=== PATIENT | female | born 1990 | race African-American/Black ===

== ENCOUNTER 2017-10-07 07:00 | Inpatient (IN) | payer OTHER ==
[2017-10-07 08:17] VITALS: BMI 37.9
[2017-10-07] MEDS ORDERED: ELECTROLYTE-148 SOLN 500 ML IV ONE (08:24)
[2017-10-07] MEDS ORDERED: CITRIC ACID/SODIUM CITRATE 30 ML UNIT-DOSE CUP PO ONE (08:24)
[2017-10-07] MEDS ORDERED: ELECTROLYTE-148 SOLN 1,000 ML IV SCH (08:30)
[2017-10-07 08:48] LABS: BASO % 0.4 % (0-2.0); EOS % 2.8 % (0-4.5); HEMATOCRIT 30.8 % (32.4-45.2); HEMOGLOBIN 10.2 GM/dL (10.7-15.3); LYMPH % 14.8 % (8-40); MCH 28.9 pg (25.7-33.7); MCHC 33.3 g/dl (32.0-36.0); MEAN CELL VOLUME 86.7 fl (80-96); MEAN PLT VOLUME 7.5 fl (7.5-11.1); MONO % 6.2 % (3.8-10.2); NEUT % 75.8 % (42.8-82.8); PLATELET COUNT 340 K/MM3 (134-434); RBC 3.55 M/mm3 (3.60-5.2); WHITE BLOOD COUNT 7.8 K/mm3 (4.0-10.0)
[2017-10-07 08:49] LABS: INR 0.97 (0.82-1.09)
[2017-10-07 08:52] LABS: ACTIVATED PTT 32.2 SECONDS (26.9-34.4)
[2017-10-07 08:59] LABS: ALBUMIN 2.6 g/dl (3.4-5.0); ALK PHOS 154 U/L (45-117); ANION GAP 11 (8-16); BILIRUBIN,TOTAL 0.4 mg/dL (0.2-1.0); BLOOD UREA NITROGEN 5 mg/dL (7-18); CALCIUM 8.2 mg/dL (8.5-10.1); CHLORIDE 106 mmol/L (98-107); CO2 23 mmol/L (21-32); CREATININE 0.4 mg/dL (0.55-1.02); GAMMA GLUTAMYL TRANSPEPTIDASE 6 U/L (5-85); GLUCOSE,RANDOM 81 mg/dL (74-106); POTASSIUM 3.7 mmol/L (3.5-5.1); SGOT/AST 17 U/L (15-37); SGPT/ALT 16 U/L (12-78); SODIUM 140 mmol/L (136-145); TOT PROT 6.2 g/dl (6.4-8.2)
[2017-10-07 09:44] LABS: URINE APPEARANCE SLCLOUDY; URINE BILIRUBIN NEGATIVE (<2.0 mg/dL); URINE BLOOD NEGATIVE (NEGATIVE); URINE COLOR YELLOW; URINE GLUCOSE (UA) NEGATIVE (NEGATIVE); URINE KETONE NEGATIVE (NEGATIVE); URINE LEUK ESTERASE NEGATIVE (NEGATIVE); URINE NITRITE NEGATIVE (NEGATIVE)
[2017-10-07 09:48] LABS: URINE PROTEIN 1+ (NEGATIVE)
[2017-10-07 10:05] LABS: RATIO URIN PROTEIN/URIN CREAT 0.25 MG/DL
--- NOTE | 2017-10-07 10:15 | HP ---
Past Medical History - Primary Care Physician PCP:: Doreen Diaz - Admission Chief Complaint: 27 yrs , previous c/s x2 , 37.5 weeks , h/o chr htn , sometimes ac exacerbations, hence she is recommended delivery by M Dr Darby on 10/04/17 : sono report : SLIUP Vx, ant placenta, efw 34 % ( 6'3") , ARRON 8.8 History of Present Illness: care at , [facility] Pt non compliant wt gain 45 lbs panel 03/08/17 A Pos, Hbsag neg, Rpr nr, Hiv neg , Rubella immune Pap nilm, gc/ct neg , 08/08/17 1 hr Gtt 85, rpr nr, 24hr urine protein 288, cr clearance 117.8 , Uric acid 2.4 , HEELP work Up neg 10/01/17 gc/ct neg, Gbs neg, Hiv neg H/h 10.0/31.2 , PLt 341 , HELLP work Up neg pt had HELLP work up done in L&D twice , last time on 10/04/17 neg , urine pro/ cr ratio 4.2 . pt was followed with [facility] NT screen & Modified Sequential neg Anatomy sono was normal, growth son were done she was placed on Asprin 81 mg po daily. non compliant. last she took on Chr Htn , Rx po labetalo 100 mg BID daily, non compliant . 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 No: Migraine, Seizure Cardiovascular: Yes: HTN (chr hTN treatment with Po labetalol), Other (h/o Preclempsia in previous 3 pregn) Pulmonary: Yes: Asthma, Sleep Apnea Gastrointestinal: No: Gastritis, GERD Renal/: No: UTI Reproductive: Yes: Other (past h/o abn pap, Last pap 03/08/& nILM,) ...: 4 ...Para: 3 ...Term: 3 ...: 0 ...Spon : 0 ...Induced : 0 ...Multiple Gestation: 0 ...LMP: 01/16/17 ... Weeks Gestation by Dates: 37.5 ...EDC by Dates: 10/23/17 ...EDC by Sono: 10/23/17 Additional OB History: G1 10/23/2003 40 weeks 6'4" [facility] h/p preclempsia. G2 08/02/2010 40 weeks Primary c/section h/o preclempsia. G3 01/2014 40 weeks Repeat c/s 6'8" h/o peclempsia Heme/Onc: Yes: Anemia (rx po iron bid & pnv, high iron diet). No: B12 Deficiency, Bleeding Disorder, Cancer, Current Chemotherapy, Current Radiation Therapy, Hemochromatosis, Hypercoaguable State, Myeloproliferative Synd, Sickle Cell Disease, Sickle Cell Trait, Thrombocytopenia, Other Infectious Disease: Yes: STD's (h/o HPV in past). No: AIDS, HIV, Tuberculosis Psych: Yes: Other (denies h/o mental health problems) Endocrine: Yes: Other (obesity) - Past Surgical History Past Surgical History: Yes: (c/sections 07/2010 & 01/2014) Hx Myomectomy: No Hx Transabdominal Cerclage: No - Smoking History Smoking history: Current every day smoker Have you smoked in the past 12 months: Yes Aproximately how many cigarettes per day: 1 - Alcohol/Substance Use Hx Alcohol Use: No History of Substance Use: reports: None, Marijuana (pt states she stopped couple of months before she was seen in the clinic , ? 12/2016. 03/08/17 urine drug tox pos for Marijuana) Home Medications - Allergies Allergies/Adverse Reactions: Allergies Allergy/AdvReac Type Severity Reaction Status Date / Time No Known Allergies Allergy Verified 10/07/17 09:30 - Home Medications Home Medications: Ambulatory Orders Aspirin [Ecotrin] 81 mg PO DAILY 09/24/17 Ferrous Sulfate 325 mg PO DAILY 09/24/17 Labetalol HCl 100 mg PO BID 09/24/17 Vitamins (Sjr) - 1 tab PO DAILY 09/24/17 Family Disease History - Family Disease History Family Disease History: Diabetes: Mother (HTN), Sister (PIH), Other: Grandparent (HTN) Physical Exam - Maternity Vital Signs: Vital Signs Temperature 98.4 F 10/07/17 07:52 Pulse Rate 80 10/07/17 07:52 Respiratory Rate 18 10/07/17 07:52 Blood Pressure 131/85 10/07/17 07:52 O2 Sat by Pulse Oximetry (%) Selected Entries 10/07/17 07:52 Weight 235 lb Constitutional: Yes: Well Nourished, No Distress, Obese Eyes: Yes: WNL HENT: Yes: WNL Neck: Yes: WNL Cardiovascular: Yes: WNL, Regular Rate and Rhythm Lungs: Clear to auscultation Breast(s): Yes: WNL. No: Mass - Abdominal Exam/OB Fundal Height: 38 Number of Fetuses: Single Presentation: Vertex Contractions: No Monitor Mode: External Heart Rate (range): 115-120 Heart Rate Location: Midline Category: I Accelerations: Uniform Decelerations: None - Vaginal Exam/OB Vaginal Bleediing: No Speculum Exam: No Dilatation (cm): close Effacement (%): unefface Presentation: Vertex/Position Station: -3 - Physical Exam Musculoskeletal: Yes: WNL Extremities: Yes: WNL. No: Calf Tenderness Edema: Yes Edema: LLE: 1+, RLE: 1+ Integumentary: Yes: WNL, Incision (pfannensteil scar) Deep Tendon Reflex Grade: Normal +2 ...Motor Strength: WNL Psychiatric: Yes: WNL - Labs Lab Results: CBC, BMP 10/07/17 08:00 10/07/17 08:00 Laboratory Tests 10/07/17 10/07/17 10/07/17 08:00 08:00 09:02 PT with INR 11.00 INR 0.97 PTT (Actin FS) 32.2 Urine Protein 1+ H Protein/Creatinin Ratio RPR Titer Nonreactive 10/07/17 09:02 PT with INR INR PTT (Actin FS) Urine Protein Protein/Creatinin Ratio 0.25 RPR Titer Laboratory Tests 10/07/17 08:00 GGT 6 AST 17 ALT 16 Hemorrhage Risk Assessment - Risk Factors Risk Score: 2 Risk Level: High Risk Problem List - Problems (1) 37 or more weeks gestation of Code(s): [id number] - (2) Previous section Code(s): Z98.891 - HISTORY OF UTERINE SCAR FROM PREVIOUS SURGERY (3) Chronic hypertension affecting Code(s): O10.919 - UNSP PRE-EXISTING HTN COMP , UNSP TRIMESTER (4) Obesity (BMI 35.0-39.9 without comorbidity) Code(s): E66.9 - OBESITY, UNSPECIFIED (5) Anemia affecting in third trimester Code(s): O99.013 - ANEMIA COMPLICATING , THIRD TRIMESTER Assessment/Plan 27 yrs , previous c/s x2 , 37.5 weeks, Chr Htn on meds po labetalol & po asprin , recommended delivery by MFM , gbs neg , anemia h/o preclempsia in past . plan repeat c/section
[2017-10-07] MEDS ORDERED: OXYTOCIN 20 UNITS in 0.9% NS 20 UNIT/1,000 ML INFUS.BAG IV ONE (10:20)
[2017-10-07] MEDS ORDERED: morphine SULFATE/Preservative Free 0.5 MG/ML (1cc Syringe) ONE (10:38)
[2017-10-07] MEDS ORDERED: LABETALOL HCL 5 MG/1 ML (100MG/20 ML VIAL) ONE (10:45)
[2017-10-07] MEDS ORDERED: ESMOLOL HCL 100,000 MCG/10 ML VIAL ONE (10:47)
[2017-10-07] MEDS ORDERED: IBUPROFEN 600 MG TABLET (FP) PO PRN (11:07)
[2017-10-07] MEDS ORDERED: ONDANSETRON 4 MG/2 ML VIAL IVPUSH PRN (11:07)
[2017-10-07] MEDS ORDERED: MIDAZOLAM HCL 2 MG/2 ML SINGLE DOSE VIAL ONE (11:37)
[2017-10-07 12:16] LABS: COCAINE, UR NEGATIVE ng/ml (CUTOFF=300); METHADONE, UR NEGATIVE ng/ml (CUTOFF=300); OPIATES, URI NEGATIVE ng/ml (CUTOFF=300); PHENCYCLIDINE,URINE NEGATIVE ng/ml (CUTOFF=25); URINE AMPHETAMINES NEGATIVE ng/ml (CUTOFF=500); URINE BARBITURATES NEGATIVE ng/ml (CUTOFF=200); URINE BENZODIAZEPINES NEGATIVE ng/ml (CUTOFF=200)
[2017-10-07] MEDS ORDERED: ceFAZolin SODIUM 1 GM VIAL ONE ×2 (12:26)
[2017-10-07] MEDS ORDERED: METHYLERGONOVINE MALEATE 0.2 MG/1 ML AMP IM PRN (12:35)
[2017-10-07] MEDS ORDERED: SENNOSIDES/DOCUSATE COMBO (SENNA PLUS) TABLET (UD) PO PRN (12:35)
[2017-10-07] MEDS ORDERED: OXYTOCIN 20 UNITS in 0.9% NS 20 UNIT/1,000 ML INFUS.BAG IV SCH (12:45)
--- NOTE | 2017-10-07 13:32 | OP ---
Operative Note - Note: Operative Date: 10/07/17 Pre-Operative Diagnosis: 37.5 weeks, previous c/s x2, Chr HTN, Obesity, anemia Operation: RepeatlFTC/S Findings: 11.15 AM , baby boy, 9/9, wt 6' 13" , LOT . lysis of omental adhesions do e both tubes & ovaries normal Dr Brito present in the OR Surgeon: Doreen Diaz Regulatory Agency Director: Franck Barney Anesthesiologist/WORKFORCE CONSULTANT: Subhash Lui Anesthesia: Spinal Specimens Removed: cord segment for blood gas. cord blood. placenta Estimated Blood Loss (mls): 800 Drains, Volume Out (mls): 100 (robertson alla color ) Operative Report Dictated: Yes
--- NOTE | 2017-10-07 13:37 | PN ---
Delivery - Delivery Section: Repeat, Low Flap Transverse (Lysis of Omental adhesions) Type of Anesthesia: Spinal EBL (cc): 800 (robertson out put 100 ml alla color ) Delivery, Single - Stages of Labor Date of Delivery: 10/07/17 Time of Delivery: 11:15 Time Placenta Delivered: 11:17 Placenta: Yes: Manual Removal, Uterine Exploration - Condition of Instructor Ballroom Dancing/District Administrator Present: Yes Name: Darrius Brito Infant Gender: Male Weight: 6 lb 13 oz Position: Left, OT Total Hours ROM (Hrs/Mins): 0hrs/2mins - 1 Minute Total Score: 9 5 Minutes Total Score: 9 - Hardin Feeding Plan Initial Plan: Elected not to breastfeed exclusively throughout hospitalization Remarks - Remarks Remarks: 22 yrs , GBS neg, PNC at 2, [facility] Indication : 37.5 weeks, previous c/s x2, chr HTN, Obesity , Anemia Intra op 3 gm iv ancef given IV Labetalol 10 mg preop given intraop course uneventful Post Op BP 160/97 post op 200 mg po Labetalo given
[2017-10-07] MEDS: ACETAMINOPHEN 1000 MG/100 ML VIAL (NON FORMULARY) IVPB PRN (13:55)
[2017-10-07] MEDS ORDERED: LABETALOL HCL 200 MG TABLET (FP) PO SCH (14:00)
[2017-10-07 16:02] LABS: EPI CELLS MANY /HPF (FEW); URINE BACTERIA MANY /hpf (NONE SEEN)
[2017-10-07] MEDS: CEFAZOLIN 1 GM/D5W 1 GM/50 ML BAG IVPB SCH (18:10)
[2017-10-07] MEDS ORDERED: LABETALOL HCL 200 MG TABLET (FP) PO PRN (18:52)
--- NOTE | 2017-10-07 18:52 | CONSULT ---
Consult - text type - Consultation Consultation Note: Renal Consult for Hypertension Vital Signs Temperature 98.4 F 10/07/17 18:00 Pulse Rate 86 10/07/17 18:00 Respiratory Rate 20 10/07/17 18:00 Blood Pressure 164/97 10/07/17 18:00 O2 Sat by Pulse Oximetry (%) 100 10/07/17 16:10 Intake & Output 10/04/17 10/05/17 10/06/17 10/07/17 23:59 23:59 23:59 23:59 Intake Total 1450 Output Total 300 Balance 1150 Weight 106.594 kg CBC, BMP 10/07/17 08:00 10/07/17 08:00 Current Medications Acetaminophen (Tylenol -) 650 mg PO Q4H PRN PRN Reason: PAIN LEVEL 4 - 6 Acetaminophen (Ofirmev Injection -) 1,000 mg IVPB Q6H PRN PRN Reason: PAIN LEVEL 1-5 Last Admin: 10/07/17 13:55 Dose: 1,000 mg Bisacodyl (Dulcolax Suppository -) 10 mg RC PRN PRN PRN Reason: CONSTIPATION Diphenhydramine HCl (Benadryl Injection -) 25 mg IVPUSH Q4H PRN PRN Reason: Pruritis Diphtheria/Tetanus/Acell Pertussis (Boostrix -) 0.5 ml IM .ONCE ONE Stop: 10/08/17 14:01 Enoxaparin Sodium (Lovenox -) 40 mg SQ DAILY [facility] Ferrous Sulfate (Feosol -) 325 mg PO BID [facility] Cefazolin Sodium (Ancef 1 Gm Premixed Ivpb -) 1 gm in 50 mls @ 100 mls/hr IVPB Q8H-IV [facility] Stop: 10/08/17 17:59 Last Admin: 10/07/17 18:10 Dose: 100 mls/hr Oxytocin/Sodium Chloride (Normal Saline+20 Units Oxytocin -) 20 unit in 1,000 mls @ 125 mls/hr IV ASDIR [facility] Last Admin: 10/07/17 11:17 Dose: 125 mls/hr Labetalol HCl (Normodyne -) 200 mg PO TID [facility] Last Admin: 10/07/17 13:00 Dose: 200 mg Methylergonovine Maleate (Methergine Injection -) 0.2 mg IM Q4H PRN PRN Reason: Excessive Bleeding (L&D) Ondansetron HCl (Zofran Injection) 4 mg IVPUSH Q4H PRN PRN Reason: NAUSEA Last Admin: 10/07/17 14:10 Dose: 4 mg Oxycodone HCl (Roxicodone -) 5 mg PO Q4H PRN PRN Reason: PAIN LEVEL 4 - 6 Oxycodone HCl (Roxicodone -) 10 mg PO Q4H PRN PRN Reason: PAIN LEVEL 7 - 10 Pneumococcal 13-Valent Conj Vacc (Prevnar 13 Syringe -) 0.5 ml IM .ONCE ONE Stop: 10/08/17 14:01 Multivit/Folic Acid/Iron ( Vitamins (Sjr) -) 1 tab PO DAILY ROS Senna/Docusate Sodium (Pericolace -) 2 tablet PO HS PRN PRN Reason: CONSTIPATION Simethicone (Mylicon -) 80 mg PO Q4H PRN PRN Reason: GAS 27 year old woman with underlying hypertension now with hypertension that is uncontrolled. # hypertension secondary to gestational hypertension + essential hypertension no overt proteinuria or thrombocytopenia to indicate pre-eclampia or HEELP syndrome Start Nifepdine 30mg Daily continue Labetalol PRN Q6h for SBP > 160 or DBP > 100 Low salt diet avoid nsaids if possible Thank you Fritz Winchester DO
[2017-10-07] MEDS: NIFEdipine E.R. 30 MG TABLET (FP) PO SCH (19:12)
[2017-10-08] MEDS: CEFAZOLIN 1 GM/D5W 1 GM/50 ML BAG IVPB SCH ×2 (02:56→09:22)
[2017-10-08] MEDS: ACETAMINOPHEN 1000 MG/100 ML VIAL (NON FORMULARY) IVPB PRN (04:42)
[2017-10-08] MEDS ORDERED: oxyCODONE HCL 5 MG TABLET PO PRN (06:00)
--- NOTE | 2017-10-08 08:13 | PN ---
Progress Note (short form) - Note Progress Note: Anesthesia pod#1 S/P under spinal and Duramorph VSS,ambulating well,no N/V,mild itch is still there. A/P Doing well Maribel Santoyo MD.
[2017-10-08 08:43] LABS: BASO % 0.3 % (0-2.0); LYMPH % 8.6 % (8-40); MCH 29.2 pg (25.7-33.7); MCHC 33.4 g/dl (32.0-36.0); MEAN CELL VOLUME 87.4 fl (80-96); MEAN PLT VOLUME 7.5 fl (7.5-11.1); MONO % 5.7 % (3.8-10.2); NEUT % 84.4 % (42.8-82.8); PLATELET COUNT 314 K/MM3 (134-434); RBC 3.08 M/mm3 (3.60-5.2); RDW 14.1 % (11.6-15.6); WHITE BLOOD COUNT 10.3 K/mm3 (4.0-10.0)
[2017-10-08] MEDS: PRENATAL VITAMINS W/ FOLIC ACID TABLET (FP) PO SCH (09:22)
[2017-10-08] MEDS: ENOXAPARIN NA (PORCINE) 40 MG/0.4 ML DISP.SYRIN SQ SCH (09:22)
[2017-10-08] MEDS: NIFEdipine E.R. 30 MG TABLET (FP) PO SCH (09:22)
--- NOTE | 2017-10-08 09:33 | PN ---
Post Progress Note - Subjective Subjective: 27 yo Para 3 status post repeat , seen and evaluated. Doing well. Post Day: 1 Type of Delivery: Repeat C/S Vital Signs: Vital Signs Temperature 98.1 F 10/08/17 06:00 Pulse Rate 87 10/08/17 06:00 Respiratory Rate 20 10/08/17 09:00 Blood Pressure 132/82 10/08/17 06:00 O2 Sat by Pulse Oximetry (%) 100 10/07/17 16:10 Breast Exam: Yes: Soft Uterus: Yes: Fundus Firm Incision: Yes: Dressing dry and intact Abdomen/GI: Yes: Abdomen soft, Tolerating PO Lochia: Yes: Rubra Lochia, amount: Small Extremities: Yes: Calves non-tender Perineum: Yes: Intact Activity: Ambulating - Labs Labs: CBC WBC 10.3 K/mm3 (4.0-10.0) H D 10/08/17 07:45 RBC 3.08 M/mm3 (3.60-5.2) L 10/08/17 07:45 Hgb 9.0 GM/dL (10.7-15.3) L D 10/08/17 07:45 Hct 27.0 % (32.4-45.2) L 10/08/17 07:45 MCV 87.4 fl (80-96) 10/08/17 07:45 MCH 29.2 pg (25.7-33.7) 10/08/17 07:45 MCHC 33.4 g/dl (32.0-36.0) 10/08/17 07:45 RDW 14.1 % (11.6-15.6) 10/08/17 07:45 Plt Count 314 K/MM3 (134-434) 10/08/17 07:45 MPV 7.5 fl (7.5-11.1) 10/08/17 07:45 Neutrophils % 84.4 % (42.8-82.8) H 10/08/17 07:45 Lymphocytes % 8.6 % (8-40) D 10/08/17 07:45 Monocytes % 5.7 % (3.8-10.2) 10/08/17 07:45 Eosinophils % 1.0 % (0-4.5) 10/08/17 07:45 Basophils % 0.3 % (0-2.0) 10/08/17 07:45 Retic Count 2.13 % (0.5-1.5) H 10/07/17 08:00 Haptoglobin 140 mg/dL (34-200) 10/07/17 08:00 Problem List - Problems (1) Status post repeat low transverse section Code(s): Z98.891 - HISTORY OF UTERINE SCAR FROM PREVIOUS SURGERY Assessment/Plan Status post repeat Stable Ambulation Analgesia as needed Continue routine post op care
[2017-10-08] MEDS ORDERED: BISACODYL 10 MG SUPP.RECT RC PRN (12:35)
--- NOTE | 2017-10-08 13:32 | PN ---
Progress Note (short form) - Note Progress Note: Renal follow up for Hypertension Pt seen and examined at the bedside has some abd discomfort no GARCIA, blurry vision, dizziness, lightheadedness, N/V Vital Signs Temperature 98.7 F 10/08/17 13:00 Pulse Rate 97 H 10/08/17 13:00 Respiratory Rate 20 10/08/17 13:00 Blood Pressure 142/92 10/08/17 13:00 O2 Sat by Pulse Oximetry (%) 100 10/07/17 16:10 Intake & Output 10/05/17 10/06/17 10/07/17 10/08/17 23:59 23:59 23:59 23:59 Intake Total 1750 1050 Output Total 500 1100 Balance 1250 -50 Weight 106.594 kg NAD awake and alert RRR Trace LE edema CBC, BMP 10/08/17 07:45 10/07/17 08:00 Current Medications Acetaminophen (Tylenol -) 650 mg PO Q4H PRN PRN Reason: PAIN LEVEL 4 - 6 Acetaminophen (Ofirmev Injection -) 1,000 mg IVPB Q6H PRN PRN Reason: PAIN LEVEL 1-5 Last Admin: 10/08/17 04:42 Dose: 1,000 mg Bisacodyl (Dulcolax Suppository -) 10 mg RC PRN PRN PRN Reason: CONSTIPATION Diphenhydramine HCl (Benadryl Injection -) 25 mg IVPUSH Q4H PRN PRN Reason: Pruritis Last Admin: 10/08/17 08:06 Dose: 25 mg Diphtheria/Tetanus/Acell Pertussis (Boostrix -) 0.5 ml IM .ONCE ONE Stop: 10/08/17 14:01 Enoxaparin Sodium (Lovenox -) 40 mg SQ DAILY ROS Last Admin: 10/08/17 09:22 Dose: 40 mg Ferrous Sulfate (Feosol -) 325 mg PO BID [facility] Cefazolin Sodium (Ancef 1 Gm Premixed Ivpb -) 1 gm in 50 mls @ 100 mls/hr IVPB Q8H-IV ROS Stop: 10/08/17 17:59 Last Admin: 10/08/17 09:22 Dose: 100 mls/hr Oxytocin/Sodium Chloride (Normal Saline+20 Units Oxytocin -) 20 unit in 1,000 mls @ 125 mls/hr IV ASDIR ROS Last Admin: 10/07/17 11:17 Dose: 125 mls/hr Labetalol HCl (Normodyne -) 200 mg PO Q6H PRN PRN Reason: HYPERTENSION Last Admin: 10/08/17 03:02 Dose: 200 mg Methylergonovine Maleate (Methergine Injection -) 0.2 mg IM Q4H PRN PRN Reason: Excessive Bleeding (L&D) Nifedipine (Procardia Xl -) 30 mg PO ONCE ONE Stop: 10/08/17 13:31 Nifedipine (Procardia Xl -) 60 mg PO DAILY [facility] Ondansetron HCl (Zofran Injection) 4 mg IVPUSH Q4H PRN PRN Reason: NAUSEA Last Admin: 10/07/17 14:10 Dose: 4 mg Oxycodone HCl (Roxicodone -) 5 mg PO Q4H PRN PRN Reason: PAIN LEVEL 4 - 6 Oxycodone HCl (Roxicodone -) 10 mg PO Q4H PRN PRN Reason: PAIN LEVEL 7 - 10 Pneumococcal Polyvalent Vaccine (Pneumovax -) 0.5 ml IM .ONCE ONE Stop: 10/08/17 14:01 Multivit/Folic Acid/Iron ( Vitamins (Sjr) -) 1 tab PO DAILY [facility] Last Admin: 10/08/17 09:22 Dose: 1 tab Senna/Docusate Sodium (Pericolace -) 2 tablet PO HS PRN PRN Reason: CONSTIPATION Simethicone (Mylicon -) 80 mg PO Q4H PRN PRN Reason: GAS 27 year old woman with underlying hypertension now with hypertension that is uncontrolled. # hypertension secondary to gestational hypertension + essential hypertension BP remains above goal will change nifedipine to 60mg daily and continue Labetalol PRN for SBP > 160 or DBP > 100 Low salt diet avoid nsaids Thank you Fritz Winchester DO
[2017-10-08] MEDS ORDERED: NIFEdipine E.R. 30 MG TABLET (FP) PO ONE (13:45)
[2017-10-08] MEDS ORDERED: PNEUMOC 13-VAL CONJ-DIP CRM/PF 0.5 ML DISP.SYRIN IM ONE (14:00)
[2017-10-08] MEDS ORDERED: PNEUMOCOCCAL 23 VACCINE 0.5 ML VIAL IM ONE (14:00)
[2017-10-08] MEDS ORDERED: DIPHTH,PERTUSS(ACELL),TET 0.5 ML DISP.SYRIN IM ONE (14:00)
[2017-10-08] MEDS: SIMETHICONE 80 MG TAB.CHEW (FP) PO PRN ×2 (16:55→22:20)
[2017-10-08] MEDS: ACETAMINOPHEN 325 MG TABLET (FP) PO PRN ×2 (16:55→22:23)
[2017-10-08] MEDS: oxyCODONE HCL 5 MG TABLET PO PRN ×2 (16:55→22:22)
[2017-10-08] MEDS: FERROUS SO4 325 MG TABLET (FP) PO SCH (22:20)
[2017-10-09] MEDS: SIMETHICONE 80 MG TAB.CHEW (FP) PO PRN ×2 (04:39→09:27)
[2017-10-09] MEDS: ACETAMINOPHEN 325 MG TABLET (FP) PO PRN ×4 (04:39→21:18)
[2017-10-09] MEDS: oxyCODONE HCL 5 MG TABLET PO PRN ×2 (04:40→09:28)
--- NOTE | 2017-10-09 08:27 | PN ---
Post Progress Note - Subjective Subjective: c/o persistent headache since last night .abd incision site pain 5-6/10 bleeing is less now Post Day: 2 Type of Delivery: Repeat C/S Vital Signs: Vital Signs Temperature 99.0 F 10/09/17 05:52 Pulse Rate 98 H 10/09/17 05:52 Respiratory Rate 20 10/09/17 05:52 Blood Pressure 137/82 10/09/17 05:52 O2 Sat by Pulse Oximetry (%) 100 10/07/17 16:10 Breast Exam: Yes: Soft, Other (Bf ). No: Engorged Uterus: Yes: Fundus Firm, Fundus below umbilicus, Non-tender Incision: Yes: Sutures intact. No: Redness, Oozing Abdomen/GI: Yes: Abdomen soft, Passing flatus (bm not done ), Tolerating PO ( diet ). No: Abdominal Distention (obese abdomen ) Lochia: Yes: Rubra Lochia, amount: Moderate Extremities: Yes: Calves non-tender Perineum: Yes: Intact Activity: Ambulating - Labs Labs: CBC WBC 10.3 K/mm3 (4.0-10.0) H D 10/08/17 07:45 RBC 3.08 M/mm3 (3.60-5.2) L 10/08/17 07:45 Hgb 9.0 GM/dL (10.7-15.3) L D 10/08/17 07:45 Hct 27.0 % (32.4-45.2) L 10/08/17 07:45 MCV 87.4 fl (80-96) 10/08/17 07:45 MCH 29.2 pg (25.7-33.7) 10/08/17 07:45 MCHC 33.4 g/dl (32.0-36.0) 10/08/17 07:45 RDW 14.1 % (11.6-15.6) 10/08/17 07:45 Plt Count 314 K/MM3 (134-434) 10/08/17 07:45 MPV 7.5 fl (7.5-11.1) 10/08/17 07:45 Neutrophils % 84.4 % (42.8-82.8) H 10/08/17 07:45 Lymphocytes % 8.6 % (8-40) D 10/08/17 07:45 Monocytes % 5.7 % (3.8-10.2) 10/08/17 07:45 Eosinophils % 1.0 % (0-4.5) 10/08/17 07:45 Basophils % 0.3 % (0-2.0) 10/08/17 07:45 Retic Count 2.13 % (0.5-1.5) H 10/07/17 08:00 Haptoglobin 140 mg/dL (34-200) 10/07/17 08:00 Problem List - Problems (1) 37 or more weeks gestation of Code(s): [id number] - (2) Previous section Code(s): Z98.891 - HISTORY OF UTERINE SCAR FROM PREVIOUS SURGERY (3) Chronic hypertension affecting Code(s): O10.919 - UNSP PRE-EXISTING HTN COMP , UNSP TRIMESTER (4) Obesity (BMI 35.0-39.9 without comorbidity) Code(s): E66.9 - OBESITY, UNSPECIFIED (5) Anemia affecting in third trimester Code(s): O99.013 - ANEMIA COMPLICATING , THIRD TRIMESTER Assessment/Plan post op repeat c/section , CHr Htn on Po Procardia 30 XL & labetalo 200 mg prn headache possible due to procardia, will let Dr Winchester be aware of it .. anemia , ct po iron & pnv encourage ambulation & deep breathing
--- NOTE | 2017-10-09 09:10 | OP ---
DATE OF OPERATION: 10/07/2017 PREOPERATIVE DIAGNOSIS: AT 37.5 weeks, previous section x2, chronic hypertension acute exacerbation, obesity, anemia. SURGEON: Doreen Diaz MD SUPERVISORY INVESTIGATIVE SPECIALIST SURGEON: SANCHEZ Figueredo ANESTHESIOLOGIST: uSbhash Lui MD ANESTHESIA: Spinal. PRIMING POWDER PREMIX BLENDER: Darrius Brito MD POSTOPERATIVE DIAGNOSIS: At 37.5 weeks, previous section x2, chronic hypertension acute exacerbation, obesity, anemia. FINDINGS: This is 27-year-old 4, para 3-0-0-3, previous x2, has history of hypertension, sometimes blood pressure spikes, blood pressure elevation to 160 systolic to 101 diastolic so [facility] recommends delivery. Patient is brought in for a today. HELLP Work Up was negative and urine protein is 1+. Patient is not in labor. PROCEDURE: Patient was taken to the operating room table, and abdomen was shaved, prepped. Little catheter was placed. Spinal anesthesia was given. She was placed in supine position. Abdomen was painted and draped in usual manner. Pfannenstiel incision was made through previous scar, skin, subcutaneous tissue and anterior rectus sheath was incised transversely. Bleeding points were clamped and cauterized. Rectus muscle was from the rectus sheath. The parietal peritoneum was opened vertically. Lower flap of the peritoneum was incised transversely, and there was no definite layer of bladder peritoneum identified and the bladder was pushed down and the lower uterine segment was isolated. It was very thick, and it was extended transversely. Amniotic fluid was clear. Baby was delivered from LOT position, baby boy at 11:15 a.m., was 9 and 9, and the baby's weight was 6 pounds 13 ounces. Cord was clamped and cut. Cord blood was collected. A cord segment was sent for the cord blood gases, and placenta was removed completely with the membranes. Then , the uterine cavity was cleaned. The uterine incision was closed in 2 layers. First layer was continuous locking with Biosyn 0 suture. Second layer was continuous intermittent locking with Biosyn 0 suture. In second layer, vertical mattress sutures were taken, Upper layer of incision was very thick myometrium. Bladder peritoneum was closed also with Biosyn 0 suture with interrupted sutures where it could be identified . Hemostasis was verified. Both tubes and ovaries were normal,.and there were omental adhesions anteriorly into the parietal peritoneum. The omentum was clamped, cut, and ligated with 0 Vicryl suture and the parietal peritoneum was freed from the omental adhesions. In order to obtain adequate exposure , extension was done on right side by rectus muscle transection . the muscle was approximated together on right side. Rt & Lt side rectus muscle also was approximated together with Vicryl 0 suture. Hemostasis was verified in the muscle layer and underneath the rectus sheath. Then the rectus sheath was closed with 0 Vicryl suture. Continuous sutures were taken. Hemostasis again checked and the subcutaneous tissue was approximated with 0 Vicryl 0 interrupted sutures, and then hemostasis verified, and the skin was approximated with the subcuticular sutures with the 3-0 Vicryl on a straight needle. Steri-Strips were applied. Pressure dressing was applied. Blood clots were removed from the vagina. Estimated blood loss was 800 mL. Intraoperative urine output was 100 mL. She received 2 g of IV Ancef prior to the incision, and she tolerated procedure well, and she was transferred to the recovery room in stable condition. Her postop blood pressure was 161/97. Consult with mower mechanic Dr Winchester was obtained, and she was given 200 mg of p.o. labetalol. Vj [id number] MTDD
[2017-10-09] MEDS: ENOXAPARIN NA (PORCINE) 40 MG/0.4 ML DISP.SYRIN SQ SCH (09:21)
[2017-10-09] MEDS: PRENATAL VITAMINS W/ FOLIC ACID TABLET (FP) PO SCH (09:27)
[2017-10-09] MEDS: FERROUS SO4 325 MG TABLET (FP) PO SCH ×2 (09:27→21:19)
[2017-10-09] MEDS: NIFEdipine E.R 60 MG TABLET (UD) PO SCH (09:27)
--- NOTE | 2017-10-09 17:28 | PN ---
Progress Note (short form) - Note Progress Note: Renal follow up for Hypertension Pt seen and examined at the bedside has frontal GARCIA BP is better Vital Signs Temperature 98.2 F 10/09/17 17:00 Pulse Rate 121 H 10/09/17 17:00 Respiratory Rate 18 10/09/17 17:00 Blood Pressure 135/82 10/09/17 17:00 O2 Sat by Pulse Oximetry (%) 100 10/07/17 16:10 Intake & Output 10/06/17 10/07/17 10/08/17 10/09/17 23:59 23:59 23:59 23:59 Intake Total 1750 1900 Output Total 500 1400 Balance 1250 500 Weight 106.594 kg NAD awake and alert RRR Trace LE edema CBC, BMP 10/08/17 07:45 10/07/17 08:00 Current Medications Acetaminophen (Tylenol -) 650 mg PO Q4H PRN PRN Reason: PAIN LEVEL 4 - 6 Last Admin: 10/09/17 09:28 Dose: 650 mg Acetaminophen (Ofirmev Injection -) 1,000 mg IVPB Q6H PRN PRN Reason: PAIN LEVEL 1-5 Last Admin: 10/08/17 04:42 Dose: 1,000 mg Bisacodyl (Dulcolax Suppository -) 10 mg RC PRN PRN PRN Reason: CONSTIPATION Diphenhydramine HCl (Benadryl Injection -) 25 mg IVPUSH Q4H PRN PRN Reason: Pruritis Last Admin: 10/08/17 08:06 Dose: 25 mg Enoxaparin Sodium (Lovenox -) 40 mg SQ DAILY [facility] Last Admin: 10/09/17 09:21 Dose: 40 mg Ferrous Sulfate (Feosol -) 325 mg PO BID [facility] Last Admin: 10/09/17 09:27 Dose: 325 mg Labetalol HCl (Normodyne -) 200 mg PO Q6H PRN PRN Reason: HYPERTENSION Last Admin: 10/08/17 03:02 Dose: 200 mg Methylergonovine Maleate (Methergine Injection -) 0.2 mg IM Q4H PRN PRN Reason: Excessive Bleeding (L&D) Nifedipine (Procardia Xl -) 60 mg PO DAILY [facility] Last Admin: 10/09/17 09:27 Dose: 60 mg Ondansetron HCl (Zofran Injection) 4 mg IVPUSH Q4H PRN PRN Reason: NAUSEA Last Admin: 10/07/17 14:10 Dose: 4 mg Oxycodone HCl (Roxicodone -) 5 mg PO Q4H PRN PRN Reason: PAIN LEVEL 4 - 6 Last Admin: 10/09/17 09:28 Dose: 5 mg Oxycodone HCl (Roxicodone -) 10 mg PO Q4H PRN PRN Reason: PAIN LEVEL 7 - 10 Multivit/Folic Acid/Iron ( Vitamins (Sjr) -) 1 tab PO DAILY ROS Last Admin: 10/09/17 09:27 Dose: 1 tab Senna/Docusate Sodium (Pericolace -) 2 tablet PO HS PRN PRN Reason: CONSTIPATION Last Admin: 10/08/17 22:20 Dose: 2 tablet Simethicone (Mylicon -) 80 mg PO Q4H PRN PRN Reason: GAS Last Admin: 10/09/17 09:27 Dose: 80 mg 27 year old woman with underlying hypertension now with hypertension that is uncontrolled. # hypertension secondary to gestational hypertension + essential hypertension BP at goal continue nifedpine XL 60mg Daily Tylenol PRN For GARCIA trend HR, if not improved consider EKG Thank you Fritz Winchester DO
--- NOTE | 2017-10-10 05:35 | PN ---
Post Progress Note - Subjective Subjective: 27 yo status post repeat , with gestational hypertension, seen and evaluated. She denies any headache, blurry vision nor epigastric pain. Blood pressure is controlled. Post Day: 3 Type of Delivery: Repeat C/S Vital Signs: Vital Signs Temperature 98.5 F 10/09/17 21:00 Pulse Rate 93 H 10/10/17 01:30 Respiratory Rate 20 10/10/17 01:30 Blood Pressure 130/83 10/10/17 01:30 O2 Sat by Pulse Oximetry (%) 100 10/07/17 16:10 Breast Exam: Yes: Soft Uterus: Yes: Fundus Firm Incision: Yes: [place] intact Abdomen/GI: Yes: Abdomen soft, Tolerating PO Lochia: Yes: Rubra Extremities: Yes: Calves non-tender Perineum: Yes: Intact Activity: Ambulating - Labs Labs: CBC WBC 10.3 K/mm3 (4.0-10.0) H D 10/08/17 07:45 RBC 3.08 M/mm3 (3.60-5.2) L 10/08/17 07:45 Hgb 9.0 GM/dL (10.7-15.3) L D 10/08/17 07:45 Hct 27.0 % (32.4-45.2) L 10/08/17 07:45 MCV 87.4 fl (80-96) 10/08/17 07:45 MCH 29.2 pg (25.7-33.7) 10/08/17 07:45 MCHC 33.4 g/dl (32.0-36.0) 10/08/17 07:45 RDW 14.1 % (11.6-15.6) 10/08/17 07:45 Plt Count 314 K/MM3 (134-434) 10/08/17 07:45 MPV 7.5 fl (7.5-11.1) 10/08/17 07:45 Neutrophils % 84.4 % (42.8-82.8) H 10/08/17 07:45 Lymphocytes % 8.6 % (8-40) D 10/08/17 07:45 Monocytes % 5.7 % (3.8-10.2) 10/08/17 07:45 Eosinophils % 1.0 % (0-4.5) 10/08/17 07:45 Basophils % 0.3 % (0-2.0) 10/08/17 07:45 Retic Count 2.13 % (0.5-1.5) H 10/07/17 08:00 Haptoglobin 140 mg/dL (34-200) 10/07/17 08:00 Problem List - Problems (1) Status post repeat low transverse section Code(s): Z98.891 - HISTORY OF UTERINE SCAR FROM PREVIOUS SURGERY Assessment/Plan Status post repeat Gestational hypertension Continue antihypertensive Consider D/C home tomorrow
[2017-10-10 09:23] LABS: BASO % 0.3 % (0-2.0); EOS % 2.2 % (0-4.5); HEMATOCRIT 29.8 % (32.4-45.2); LYMPH % 11.3 % (8-40); MCH 29.4 pg (25.7-33.7); MCHC 33.6 g/dl (32.0-36.0); MEAN CELL VOLUME 87.7 fl (80-96); MEAN PLT VOLUME 7.5 fl (7.5-11.1); MONO % 4.8 % (3.8-10.2); NEUT % 81.4 % (42.8-82.8); PLATELET COUNT 444 K/MM3 (134-434); RBC 3.39 M/mm3 (3.60-5.2); RDW 14.6 % (11.6-15.6); WHITE BLOOD COUNT 9.9 K/mm3 (4.0-10.0)
[2017-10-10] MEDS: NIFEdipine E.R 60 MG TABLET (UD) PO SCH (10:00)
[2017-10-10] MEDS: FERROUS SO4 325 MG TABLET (FP) PO SCH ×2 (10:00→21:28)
[2017-10-10] MEDS: PRENATAL VITAMINS W/ FOLIC ACID TABLET (FP) PO SCH (10:00)
[2017-10-10] MEDS: ENOXAPARIN NA (PORCINE) 40 MG/0.4 ML DISP.SYRIN SQ SCH (11:54)
[2017-10-10] MEDS: ACETAMINOPHEN 325 MG TABLET (FP) PO PRN ×2 (14:43→21:27)
--- NOTE | 2017-10-10 18:03 | PN ---
Progress Note (short form) - Note Progress Note: Renal follow up for Hypertension Pt seen and examined at the bedside has mild GARCIA, improved from yesterday no sob, chest pain no dizziness Vital Signs Temperature 98.1 F 10/10/17 14:00 Pulse Rate 99 H 10/10/17 14:00 Respiratory Rate 20 10/10/17 14:00 Blood Pressure 123/83 10/10/17 14:00 O2 Sat by Pulse Oximetry (%) 100 10/07/17 16:10 Intake & Output 10/07/17 10/08/17 10/09/17 10/10/17 23:59 23:59 23:59 23:59 Intake Total 1750 1900 Output Total 500 1400 Balance 1250 500 Weight 106.594 kg NAD awake and alert RRR Trace LE edema CBC, BMP 10/10/17 07:45 10/07/17 08:00 Current Medications Acetaminophen (Tylenol -) 650 mg PO Q4H PRN PRN Reason: PAIN LEVEL 4 - 6 Last Admin: 10/10/17 14:43 Dose: 650 mg Acetaminophen (Ofirmev Injection -) 1,000 mg IVPB Q6H PRN PRN Reason: PAIN LEVEL 1-5 Last Admin: 10/08/17 04:42 Dose: 1,000 mg Bisacodyl (Dulcolax Suppository -) 10 mg RC PRN PRN PRN Reason: CONSTIPATION Diphenhydramine HCl (Benadryl Injection -) 25 mg IVPUSH Q4H PRN PRN Reason: Pruritis Last Admin: 10/08/17 08:06 Dose: 25 mg Enoxaparin Sodium (Lovenox -) 40 mg SQ DAILY [facility] Last Admin: 10/10/17 11:54 Dose: 40 mg Ferrous Sulfate (Feosol -) 325 mg PO BID [facility] Last Admin: 10/10/17 10:00 Dose: 325 mg Labetalol HCl (Normodyne -) 200 mg PO Q6H PRN PRN Reason: HYPERTENSION Last Admin: 10/08/17 03:02 Dose: 200 mg Methylergonovine Maleate (Methergine Injection -) 0.2 mg IM Q4H PRN PRN Reason: Excessive Bleeding (L&D) Nifedipine (Procardia Xl -) 60 mg PO DAILY [facility] Last Admin: 10/10/17 10:00 Dose: 60 mg Ondansetron HCl (Zofran Injection) 4 mg IVPUSH Q4H PRN PRN Reason: NAUSEA Last Admin: 10/07/17 14:10 Dose: 4 mg Oxycodone HCl (Roxicodone -) 5 mg PO Q4H PRN PRN Reason: PAIN LEVEL 4 - 6 Last Admin: 10/09/17 09:28 Dose: 5 mg Oxycodone HCl (Roxicodone -) 10 mg PO Q4H PRN PRN Reason: PAIN LEVEL 7 - 10 Multivit/Folic Acid/Iron ( Vitamins (Sjr) -) 1 tab PO DAILY ROS Last Admin: 10/10/17 10:00 Dose: 1 tab Senna/Docusate Sodium (Pericolace -) 2 tablet PO HS PRN PRN Reason: CONSTIPATION Last Admin: 10/08/17 22:20 Dose: 2 tablet Simethicone (Mylicon -) 80 mg PO Q4H PRN PRN Reason: GAS Last Admin: 10/09/17 09:27 Dose: 80 mg 27 year old woman with underlying hypertension now with hypertension that is uncontrolled. # hypertension secondary to gestational hypertension + essential hypertension BP at goal, GARCIA is improved continue current management if bp remains at this range, stable for discharge on PO Nifedpine in AM Thank you Fritz Winchester DO
--- NOTE | 2017-10-11 07:23 | PN ---
Progress Note (short form) - Note Progress Note: pod 4 , s/p c/s ,htn no headache, no blurred vision CBC, BMP 10/10/17 07:45 10/07/17 08:00 Last Vital Signs Temp Pulse Resp BP Pulse Ox 98.4 F 87 20 149/93 100 10/10/17 21:00 10/11/17 06:00 10/11/17 06:00 10/11/17 06:00 10/07/17 16:10 abdomen soft, no distension, no cva incision dry, clean no calf tenderness trace edema impression, pod4, gestational HTN ,asymptomatic plan revaluation by renal ,if ok can be d/c home on po Labetalol, follow up in [facility] care 3 to 4 days
[2017-10-11] MEDS: ENOXAPARIN NA (PORCINE) 40 MG/0.4 ML DISP.SYRIN SQ SCH (10:13)
[2017-10-11] MEDS: PRENATAL VITAMINS W/ FOLIC ACID TABLET (FP) PO SCH (10:13)
[2017-10-11] MEDS: NIFEdipine E.R 60 MG TABLET (UD) PO SCH (10:15)
[2017-10-11] MEDS: ACETAMINOPHEN 325 MG TABLET (FP) PO PRN (10:21)
[2017-10-11] MEDS: FERROUS SO4 325 MG TABLET (FP) PO SCH (10:24)
--- NOTE | 2017-10-11 11:16 | PATH ---
Surgical Pathology Report Patient Name: JUAN M LARSON Med. Rec. #: [id number] /Age/Gender: 1990 (Age: 27) / F Account: [id number] Location: [facility] OBS/PRACTICE PERFORMANCE MANAGER Taken: 10/07/2017 Received: 10/08/2017 Reported: 10/11/2017 Physicians: Doreen Diaz M.D. Specimen(s) Received PLACENTA Clinical History history of eclampsia, asthma, history of HPV, trichomonas, chronic hypertension, poor compliance, x1, x2 Final Diagnosis PLACENTA, DELIVERY: THIRD TRIMESTER PLACENTA WITH FOCAL CALCIFICATION, 3 VESSEL UMBILICAL CORD, AND UNREMARKABLE PLACENTAL MEMBRANES. Electronically Signed Giovanni Rodgers M.D. Gross Description The specimen is received fresh labeled placenta and is a 538 gram, 19 x 15 x 3 cm. placenta with attached membranes and umbilical cord. The attached membranes are glistening and translucent and insert marginally. The umbilical cord measures 14 cm. in length and averages 1 cm. in diameter. The cord inserts paramarginally, 0.5 cm. to the nearest margin. No true knots or strictures are identified. Cut surface of the umbilical cord reveals 3 vessels. The surface is gaspar-blue with minimal fibrin deposition and appropriate caliber vessels. The maternal surface is lobulated and appears complete with no adherent blood clots or areas of thinning. Sectioning reveals red-brown, spongy parenchyma. No lesions are identified. Rn Renal sections are submitted in three cassettes as follows: 1- membrane rolls and umbilical cord; 2-3- full thickness sections of placenta. [facility]/10/09/2017 [facility]/10/09/2017
--- NOTE | 2017-10-11 11:37 | DS ---
Physical Exam-APPLIED MATHEMATICIAN Vital Signs: Vital Signs Temperature 98.4 F 10/10/17 21:00 Pulse Rate 87 10/11/17 06:00 Respiratory Rate 20 10/11/17 06:00 Blood Pressure 149/93 10/11/17 06:00 O2 Sat by Pulse Oximetry (%) 100 10/07/17 16:10 Constitutional: Yes: Well Nourished, Obese, Other (no c/o headache) Eyes: Yes: WNL HENT: Yes: WNL, Normocephalic Neck: Yes: WNL Cardiovascular: Yes: WNL, Regular Rate and Rhythm Respiratory: Yes: WNL, CTA Bilaterally Gastrointestinal: Yes: WNL, Normal Bowel Sounds, Soft, Abdomen, Obese, Other ( bm done). No: Distention Renal/: Yes: WNL, Other (voiding without difficulty) External Genitalia: Yes: Normal ....Post : Yes: Uterus firm, Uterus non-tender, Moderate lochia rubra ( perineum intact) Breast(s): Yes: WNL, Other (pt is not BF) Musculoskeletal: Yes: WNL Extremities: Yes: WNL. No: Calf Tenderness Edema: Yes Edema: LLE: Trace, RLE: Trace Integumentary: Yes: Tattoos Wound/Incision: Yes: Clean/Dry, Sutures Intact (intradermal sutures), Steri Strips, Open to air Neurological: Yes: WNL, Alert, Oriented ...Motor Strength: WNL Psychiatric: Yes: WNL, Alert, Oriented Labs: CBC, BMP 10/10/17 07:45 10/07/17 08:00 Delivery - Delivery Section: Repeat, Low Flap Transverse (Lysis of Omental adhesions) Type of Anesthesia: Spinal EBL (cc): 800 (robertson out put 100 ml alla color ) Delivery, Single - Stages of Labor Date of Delivery: 10/07/17 Time of Delivery: 11:15 Time Placenta Delivered: 11:17 Placenta: Yes: Manual Removal, Uterine Exploration - Condition of Infant Canvass Manager/Tool Adjuster Present: Yes Name: Darrius Brito Infant Gender: Male Weight: 6 lb 13 oz Position: Left, OT Total Hours ROM (Hrs/Mins): 0hrs/2mins - 1 Minute Total Score: 9 5 Minutes Total Score: 9 - Barre Feeding Plan Initial Plan: Elected not to breastfeed exclusively throughout hospitalization Remarks - Remarks Remarks: 22 yrs , GBS neg, PNC at 2, [facility] Indication : 37.5 weeks, previous c/s x2, chr HTN, Obesity , Anemia Intra op 3 gm iv ancef given IV Labetalol 10 mg preop given intraop course uneventful Post Op BP 160/97 post op 200 mg po Labetalo given . post op consult with Dr Rasheed was obtatined for control of hypertension pt is placed on po Procardia 60 Xl , with labetalol prn . discharge today pending dr rasheed clearance . discharge 10/11/17 Discharge Summary Reason For Visit: C/SECTION Current Active Problems 37 or more weeks gestation of (Acute) Anemia affecting in third trimester (Acute) Chronic hypertension affecting (Acute) Obesity (BMI 35.0-39.9 without comorbidity) (Acute) Previous section (Acute) Status post repeat low transverse section (Acute) Condition: Stable - Instructions Diet, Activity, Other Instructions: PT INSTRUCTED TO CALL CLINIC FOR 1 WEEK FOLLOW UP APPOINTMENT. PT INSTRUCTED TO FOLLOW UP AT OFFICE WITH DR RASHEED ON October. PT INSTRUCTED TO CALL MD IF C/O HEADACHE, BLURRED VISION, OR EPIGASTRIC DISCOMFORT OR ANY OTHER COMPLAINTS. Referrals: Doreen Diaz MD [Staff Physician] - Fritz Rasheed MD [Staff Physician] - Disposition: HOME - Home Medications Comprehensive Discharge Medication List: Ambulatory Orders Ferrous Sulfate 325 mg PO DAILY 09/24/17 Vitamins (Sjr) - 1 tab PO DAILY 09/24/17 Acetaminophen [Tylenol .Regular Strength -] 500 mg PO Q4H PRN #30 tablet Ferrous Sulfate [Feosol] 325 mg PO BID tab 10/10/17 Vitamins (Sjr) - 1 tab PO DAILY #60 tablet 10/10/17
--- NOTE | 2017-10-11 12:06 | PN ---
Progress Note (short form) - Note Progress Note: Renal follow up for Hypertension Pt seen and examined at the bedside awake and alert no acute complaints no GARCIA, no blurry vision wants to go home Vital Signs Temperature 98.4 F 10/10/17 21:00 Pulse Rate 87 10/11/17 06:00 Respiratory Rate 20 10/11/17 06:00 Blood Pressure 149/93 10/11/17 06:00 O2 Sat by Pulse Oximetry (%) 100 10/07/17 16:10 Intake & Output 10/08/17 10/09/17 10/10/17 10/11/17 23:59 23:59 23:59 23:59 Intake Total 1900 Output Total 1400 Balance 500 NAD awake and alert RRR Trace LE edema CBC, BMP 10/10/17 07:45 10/07/17 08:00 Current Medications Acetaminophen (Tylenol -) 650 mg PO Q4H PRN PRN Reason: PAIN LEVEL 4 - 6 Last Admin: 10/11/17 10:21 Dose: 650 mg Acetaminophen (Ofirmev Injection -) 1,000 mg IVPB Q6H PRN PRN Reason: PAIN LEVEL 1-5 Last Admin: 10/08/17 04:42 Dose: 1,000 mg Bisacodyl (Dulcolax Suppository -) 10 mg RC PRN PRN PRN Reason: CONSTIPATION Diphenhydramine HCl (Benadryl Injection -) 25 mg IVPUSH Q4H PRN PRN Reason: Pruritis Last Admin: 10/08/17 08:06 Dose: 25 mg Enoxaparin Sodium (Lovenox -) 40 mg SQ DAILY [facility] Last Admin: 10/11/17 10:13 Dose: 40 mg Ferrous Sulfate (Feosol -) 325 mg PO BID [facility] Last Admin: 10/11/17 10:24 Dose: 325 mg Labetalol HCl (Normodyne -) 200 mg PO Q6H PRN PRN Reason: HYPERTENSION Last Admin: 10/08/17 03:02 Dose: 200 mg Methylergonovine Maleate (Methergine Injection -) 0.2 mg IM Q4H PRN PRN Reason: Excessive Bleeding (L&D) Nifedipine (Procardia Xl -) 60 mg PO DAILY [facility] Last Admin: 10/11/17 10:15 Dose: 60 mg Ondansetron HCl (Zofran Injection) 4 mg IVPUSH Q4H PRN PRN Reason: NAUSEA Last Admin: 10/07/17 14:10 Dose: 4 mg Oxycodone HCl (Roxicodone -) 5 mg PO Q4H PRN PRN Reason: PAIN LEVEL 4 - 6 Last Admin: 10/09/17 09:28 Dose: 5 mg Oxycodone HCl (Roxicodone -) 10 mg PO Q4H PRN PRN Reason: PAIN LEVEL 7 - 10 Multivit/Folic Acid/Iron ( Vitamins (Sjr) -) 1 tab PO DAILY ROS Last Admin: 10/11/17 10:13 Dose: 1 tab Senna/Docusate Sodium (Pericolace -) 2 tablet PO HS PRN PRN Reason: CONSTIPATION Last Admin: 10/08/17 22:20 Dose: 2 tablet Simethicone (Mylicon -) 80 mg PO Q4H PRN PRN Reason: GAS Last Admin: 10/09/17 09:27 Dose: 80 mg 27 year old woman with underlying hypertension now with hypertension that is uncontrolled. # hypertension secondary to gestational hypertension + essential hypertension BP has been well controlled apart from 1 reading this am will recheck BP 2 hours after meds if improved pt can be discharged home on Nifedpine XL 60mg Daily (Rx called into pharmacy) Low salt diet pt advised to record BP twice daily at home to follow up in our office October 21 information on hypotension and what to do if she has symptoms provided Thank you for allowing us to take part in the care of this patient Fritz Winchester DO
[2017-10-11 14:19] VITALS: TEMP 98.7
[2017-10-11 14:26] VITALS: BP 144/80; PULSE 100
== END 2017-10-11 14:00 | disposition home or self-care (01) | DRG 540 ==
LOC: JLDR 07:00 → J3W 17:31
PROVIDERS: ADMIT Obstetrics & Gynecology; ATTEND Obstetrics & Gynecology
PROC: 10D00Z1 Extraction of Products of Conception, Low, Open Approach (ICD-10-PCS; principal; 2017-10-07)
PROC: 0DNU0ZZ Release Omentum, Open Approach (ICD-10-PCS; 2017-10-07)
DX: O34.211 Maternal care for low transverse scar from previous cesarean delivery (principal); O10.013 Pre-existing essential hypertension complicating pregnancy, third trimester; O99.213 Obesity complicating pregnancy, third trimester; E66.9 Obesity, unspecified; O99.013 Anemia complicating pregnancy, third trimester; O99.62 Diseases of the digestive system complicating childbirth; K66.0 Peritoneal adhesions (postprocedural) (postinfection); Z68.37 Body mass index [BMI] 37.0-37.9, adult; O99.334 Smoking (tobacco) complicating childbirth; F17.213 Nicotine dependence, cigarettes, with withdrawal; O26.893 Other specified pregnancy related conditions, third trimester; J45.909 Unspecified asthma, uncomplicated; G47.30 Sleep apnea, unspecified; Z37.0 Single live birth; Z3A.37 37 weeks gestation of pregnancy
CPT/HCPCS: 36415; 36600; 80053; 80307; 81003; 81015; 82570; 82803; 82977; 83010; 84156; 84550; 85025; 85044; 85610; 85730; 86593; 86850; 86900; 86901; 88307-TC; 90715; 90732; 94010; G0009; J0131

== ENCOUNTER 2018-10-02 17:11 | Emergency (ER) | payer OTHER ==
[2018-10-02 17:41] VITALS: BMI 34.7
[2018-10-02] MEDS ORDERED: ACETAMINOPHEN 1000 MG/100 ML VIAL (NON FORMULARY) IVPB ONE (18:10)
--- NOTE | 2018-10-02 18:20 | PDOC ---
History of Present Illness - General Chief Complaint: Headache Stated Complaint: high blood pressure Time Seen by Provider: 10/02/18 18:20 - History of Present Illness Initial Comments: 28yo A0 with PMH of HTN and asthma currently 11 weeks (LMP 07/15/18) presenting with headache, nausea, and vomiting. Patient states she woke up with a 10/10 headache. Out of concern that this may have to do with her blood pressure, patient took her nifedipine. She also took tylenol. Because she did not feel relief of her headache, she decided to come to the ED. Patient has had hypertension since her first when she was age 13. She reports being on several different antihypertensive medicines but has not taken anything for the past several months. Her certified registered nurse practitioner prescribed her nifedipine 30mg at her last office visit a couple days ago and today is now day two of taking this mediation. Patient says she has had nausea and vomiting throughout her , however, not this severe. She endorses nine episodes of nonbloody bilious vomiting. Patient has been unable to tolerate po intake without vomiting, such that she has kept herself from eating. She has had headaches like this previously, namely when her blood pressure was high. She was admitted to [facility] about six months ago with a blood pressure systolic in the 200's. No contractions or vaginal bleeding. Denies dysuria, but endorses frequency. No fevers, chills, chest pain, or shortness of breath. service attendant: Dr. Dubon PCP: Patient does not know the name of her physician Past History - Past Medical History Allergies/Adverse Reactions: Allergies Allergy/AdvReac Type Severity Reaction Status Date / Time No Known Allergies Allergy Verified 10/07/17 09:30 Home Medications: Ambulatory Orders Vitamins (Sjr) - 1 tab PO DAILY #60 tablet 10/10/17 Aspirin [Aspirin EC] 81 mg PO DAILY 10/02/18 Metoclopramide HCl [Reglan] 5 mg PO PRN PRN #15 tablet 10/02/18 Nifedipine [Procardia Xl] 30 mg PO DAILY 10/02/18 Asthma: Yes (No recent attacks) Cancer: No Cardiac Disorders: No COPD: No Diabetes: No HTN: Yes (Chronic Hypertension) Seizures: No Thyroid Disease: No - Suicide/Smoking/Psychosocial Hx Smoking History: Current some day smoker Have you smoked in the past 12 months: Yes Number of Cigarettes Smoked Daily: 1 Information on smoking cessation initiated: Yes Hx Alcohol Use: No Drug/Substance Use Hx: No Substance Use Type: None Hx Substance Use Treatment: No Review of Systems - Review of Systems Comments:: Constitutional: no fever, no chills HEENT: no throat pain, no dysphagia Cardiovascular: no chest pain, no palpitations Respiratory: no cough, no shortness of breath Gastrointestinal: +nausea, +vomiting Genitourinary: no dysuria, +frequency Musculoskeletal: no myalgia, no arthralgia Skin: no rash, no itching Neurologic: +headache, +lightheaded *Physical Exam - Vital Signs Last Vital Signs Temp Pulse Resp BP Pulse Ox 98.6 F 98 H 22 H 160/103 H 100 10/02/18 17:27 10/02/18 17:27 10/02/18 17:27 10/02/18 17:27 10/02/18 17:27 - Physical Exam Comments: General: Awake, alert, and fully oriented, in no acute distress Head: No signs of trauma Eyes: EOMI, sclera anicteric ENT: Moist mucus membranes Neck: Normal ROM, supple Lungs: Lungs clear, Normal breath sounds Cardio: Regular rhythm, S1 and S2 present Abdomen: Soft, nontender. No guarding, no rebound, no masses Extremities: Normal range of motion, Distal pulses present SKIN: Warm, Dry, normal turgor Neurologic: Cranial nerves II through XII grossly intact. Normal speech, sensation, strength, coordination, and gait. Moderate Sedation - Procedure Monitoring Vital Signs: Procedure Monitoring Vital Signs Temperature 98.6 F 10/02/18 17:27 Pulse Rate 98 H 10/02/18 17:27 Respiratory Rate 22 H 10/02/18 17:27 Blood Pressure 160/103 H 10/02/18 17:27 O2 Sat by Pulse Oximetry (%) 100 10/02/18 17:27 ED Treatment Course - LABORATORY CBC & Chemistry Diagram: 10/02/18 18:55 10/02/18 18:55 Medical Decision Making - Medical Decision Making 28yo A0 with PMH of HTN and asthma currently 11 weeks (LMP 07/15/18) presenting with headache, nausea, and vomiting. DDX including but not limited to tension headache, dehydration, gestational hypertension, pre-ecclampsia, hypertensive emergency/urgency, brain bleed 1g tylenol, 10 reglan, 1L NS No anemia or leukocytosis Electrolytes unremarkable [id number], consistent with reported gestational age Tpn negative Cr=0.5 UA negative for infection, with 1+ ketones EKG: rate 83, QTc 441, NSR, LVH with tall QRS complexes not present on EKG 10/02/18 20:54 As patient is in the first trimester of her , low suspicion for ecclampsia or pre-ecclampsia. Unremarkable troponin, creatinine, no vision changes. Do not suspect end-organ damage from hypertension Presentation consistent with tension headache combined with nausea/vomiting of with secondary dehydration Patient reports alleviated headache Patient passed po challenge Plan to discharge 10/02/18 21:27 *DC/Admit/Observation/Transfer Diagnosis at time of Disposition: Vomiting during Headache Qualifiers: Headache type: tension-type Headache chronicity pattern: acute headache Intractability: not intractable Qualified Code(s): G44.209 - Tension-type headache, unspecified, not intractable - Discharge Dispostion Disposition: HOME Condition at time of disposition: Stable - Prescriptions Prescriptions: Metoclopramide HCl [Reglan] 5 mg PO PRN PRN #15 tablet PRN Reason: Nausea - Referrals - Patient Instructions Printed Discharge Instructions: DI for Hyperemesis Gravidarum Additional Instructions: You were seen in the Emergency Department for headache. Blood work and urinalysis was normal. Anti-nausea prescription for sent to your pharmacy. Follow-up with at your already scheduled follow-up appointment on Saturday. Return to the Emergency Department if you experience: -heavy vaginal bleeding -severe pain -lightheadedness -shortness of breath -high fever -chest pain -any other concerning symptoms - Post Discharge Activity
[2018-10-02] MEDS ORDERED: METOCLOPRAMIDE HCL INJECTION 10 MG/2 ML VIAL IVPUSH ONE (18:57)
[2018-10-02] MEDS ORDERED: SODIUM CHLORIDE 1,000 ML IV STA (18:57)
[2018-10-02] MEDS ORDERED: ACETAMINOPHEN INJECTION 100 ML IVPB ONE (18:57)
[2018-10-02] MEDS ORDERED: METOCLOPRAMIDE HCL INJECTION 10 MG/2 ML VIAL ONE (19:06)
[2018-10-02 19:29] LABS: BASO % 0.5 % (0-2.0); EOS % 0.1 % (0-4.5); HEMATOCRIT 37.1 % (32.4-45.2); HEMOGLOBIN 12.7 GM/dL (10.7-15.3); LYMPH % 9.7 % (8-40); MCH 30.2 pg (25.7-33.7); MCHC 34.2 g/dl (32.0-36.0); MEAN CELL VOLUME 88.2 fl (80-96); MEAN PLT VOLUME 7.6 fl (7.5-11.1); NEUT % 86.7 % (42.8-82.8); PLATELET COUNT 406 K/MM3 (134-434); RBC 4.21 M/mm3 (3.60-5.2); RDW 15.4 % (11.6-15.6); WHITE BLOOD COUNT 8.2 K/mm3 (4.0-10.0)
--- NOTE | 2018-10-02 19:36 | PDOC ---
Attending Attestation - HPI HPI: The patient is a 28 year old female, A0 (currently 11 weeks , LMP was 07/15/18), with a significant PMH of chronic HTN and asthma, who presents to the emergency department today complaining of headache, nausea, and vomit for one day. Patient reports having a headache upon waking up this morning, which was 10/10 in nature. She admits to taking Nifedipine because she thought it was secondary to her HTN, but did not have any relief. Patient also endorses nausea and 9 episodes of NBNB vomit, noting she is unable to keep anything down. She reports having nausea and vomiting at baseline secondary to being , but not as severe as her current symptoms. The patient denies chest pain, shortness of breath, and dizziness. Denies fever, chills, diarrhea and constipation. Denies dysuria, frequency, urgency and hematuria. Allergies: NKA Past surgical history: Social history: No reported PCP: Does not recall 10/02/18 20:49 - Medical Decision Making Documentation prepared by NANNETTE Hernandez, acting as director medical surgical for Jose A Stephens MD. 10/02/18 20:49 <Makenzie Astudillo - Last Filed: 10/02/18 20:49> - Resident Resident Name: Liana Jordan - ED Attending Attestation I have performed the following: I have examined & evaluated the patient, The case was reviewed & discussed with the resident, I agree w/resident's findings & plan, Exceptions are as noted - HPI HPI: 10/02/18 21:03 Patient states that she woke up with headache, frontal, typical distribution of pain, that worsened over the course of the day. Non-exertional or thunderclap in onset, no neck px or stiffness, +supple neck. It was unresponsive to tylenol. - Physicial Exam PE: 10/02/18 21:07 GENERAL: The patient is awake, alert, and fully oriented, in no acute distress. HEAD: Normal with no signs of trauma. EYES: Pupils equal, round and reactive to light, extraocular movements intact, sclera anicteric, conjunctiva clear. ENT: Ears normal, nares patent, oropharynx clear without exudates. Moist mucous membranes. NECK: Normal range of motion, supple without lymphadenopathy, JVD, or masses. LUNGS: Breath sounds equal, clear to auscultation bilaterally. No wheezes, and no crackles. HEART: Regular rate and rhythm, normal S1 and S2 without murmur, rub or gallop. ABDOMEN: Soft, nontender, normoactive bowel sounds. No guarding, no rebound. No masses. EXTREMITIES: Normal range of motion, no edema. No clubbing or cyanosis. No cords , erythema, or tenderness. NEUROLOGICAL: Cranial nerves II through XII grossly intact. Normal speech, normal gait. PSYCH: Normal mood, normal affect. SKIN: Warm, Dry, normal turgor, no rashes or lesions noted. - Medical Decision Making 10/02/18 21:07 Headache w/o concerning features, will treat as typical headache n/v likely 2/2 hcg Elevated bp in 11wks pt by dates, no hx of ecclapmsia, per pt baseline BP is 160s/80s, she is transferring her care to superintendent of generation/Gyn at [facility] with close follow up F/u labs tx symptomatic re-eval 10/02/18 21:42 asymptomatic on re-eval pain resolved nausea resolved <Jose A Stephens - Last Filed: 10/02/18 21:42>
[2018-10-02] MEDS ORDERED: NIFEdipine 10 MG CAPSULE (FP) PO ONE (19:38)
[2018-10-02 19:45] VITALS: TEMP 99
[2018-10-02] MEDS ORDERED: NIFEdipine E.R. 30 MG TABLET (FP) ONE (19:46)
[2018-10-02 20:21] LABS: INR 1.05 (0.83-1.09); PROTHROMBIN TIME (PATIENT) 12.4 SEC (9.7-13.0)
[2018-10-02 20:24] LABS: ACTIVATED PTT 30.2 SECONDS (25.2-36.5)
[2018-10-02 20:33] LABS: ALK PHOS 86 U/L (45-117); ANION GAP 10 MMOL/L (8-16); BILIRUBIN,TOTAL 0.4 mg/dL (0.2-1); BLOOD UREA NITROGEN 8 mg/dL (7-18); CALCIUM 8.9 mg/dL (8.5-10.1); CHLORIDE 98 mmol/L (98-107); CO2 23 mmol/L (21-32); CREATININE 0.5 mg/dL (0.55-1.3); GLUCOSE,RANDOM 77 mg/dL (74-106); POTASSIUM 4.5 mmol/L (3.5-5.1); SGOT/AST 28 U/L (15-37); SGPT/ALT 33 U/L (13-61); SODIUM 131 mmol/L (136-145); TOT PROT 8.8 g/dl (6.4-8.2)
[2018-10-02 20:42] LABS: EPI CELLS 5.4 /HPF (0-5); HYALINE CASTS 1 /hpf (0-8); PH,URINE 7.5 (5.0-8.0); URINE APPEARANCE CLEAR; URINE BACTERIA 98.91 /hpf (NEGATIVE); URINE BILIRUBIN NEGATIVE (<2.0 mg/dL); URINE COLOR YELLOW; URINE GLUCOSE (UA) NEGATIVE (NEGATIVE); URINE KETONE 1+ (NEGATIVE); URINE LEUK ESTERASE NEGATIVE (NEGATIVE); URINE NITRITE NEGATIVE (NEGATIVE); URINE PROTEIN 1+ (NEGATIVE); URINE RBC 1 /hpf (0-4); URINE UROBILINOGEN 0.2 mg/dL (0.2-1.0); URINE WBC 2 /hpf (0-5)
[2018-10-02 20:47] VITALS: BP 142/95; PULSE 88
--- NOTE | 2018-10-04 17:07 | EKG ---
Test Reason : Blood Pressure : / mmHG Vent. Rate : 083 BPM Atrial Rate : 083 BPM P-R Int : 150 ms QRS Dur : 098 ms QT Int : 376 ms P-R-T Axes : 053 010 027 degrees QTc Int : 441 ms NORMAL SINUS RHYTHM POSSIBLE LEFT ATRIAL ENLARGEMENT LEFT VENTRICULAR HYPERTROPHY CANNOT RULE OUT SEPTAL INFARCT , AGE UNDETERMINED ABNORMAL ECG WHEN COMPARED WITH ECG OF 24-JAN-2014 01:33, MINIMAL CRITERIA FOR SEPTAL INFARCT ARE NOW PRESENT Confirmed by SOURAV TORO MD ([id number]) on 10/04/2018 5:06:30 PM Referred By: Confirmed By:SOURAV TORO MD
== END 2018-10-02 21:46 | disposition home or self-care (01) ==
LOC: JER 17:11
PROC: 3E033NZ Introduction of Analgesics, Hypnotics, Sedatives into Peripheral Vein, Percutaneous Approach (ICD-10-PCS; principal; 2018-10-02)
PROC: 3E033GC Introduction of Other Therapeutic Substance into Peripheral Vein, Percutaneous Approach (ICD-10-PCS; 2018-10-02)
DX: O26.891 Other specified pregnancy related conditions, first trimester (principal); O21.0 Mild hyperemesis gravidarum; G44.201 Tension-type headache, unspecified, intractable; O10.911 Unspecified pre-existing hypertension complicating pregnancy, first trimester; Z87.09 Personal history of other diseases of the respiratory system; Z3A.11 11 weeks gestation of pregnancy
CPT/HCPCS: 36415; 80053; 81003; 83690; 83735; 84484; 84702; 85025; 85610; 85730; 93005; 93010; 99282-25; J0131; J7030

== ENCOUNTER 2019-03-08 04:02 | Inpatient (IN) | payer OTHER ==
--- NOTE | 2019-03-08 04:05 | PDOC ---
History of Present Illness - General Stated Complaint: S.O.B. Time Seen by Provider: 03/08/19 04:05 History Source: Patient Exam Limitations: No Limitations - History of Present Illness Initial Comments: 28 year old female 34 weeks with PMH gestational HTN presented to ED for shortness of breath. Pt reported chest tightness consistent with prior asthma exacerbations. Pt reported she has been admitted once prior for her asthma to the hospital, denied past intubations. Pt stated she has not had difficulty controlling her asthma without treatment the last few months, so when she became short of breath last night she used her mothers rescue inhaler and nebulizer (1 treatment) without relief. Pt denied fever, chills, vomiting, diarrhea, cough. Past History - Past Medical History Allergies/Adverse Reactions: Allergies Allergy/AdvReac Type Severity Reaction Status Date / Time No Known Allergies Allergy Verified 03/08/19 08:24 Home Medications: Ambulatory Orders Vitamins (Sjr) - 1 tab PO DAILY #60 tablet 10/10/17 Labetalol HCl [Normodyne -] 200 mg PO TID 03/03/19 Asthma: Yes (No recent attacks) Cancer: No Cardiac Disorders: No COPD: No Diabetes: No HTN: Yes (Chronic Hypertension) Seizures: No Thyroid Disease: No - Reproductive History (#): 5 Para: 4 - Suicide/Smoking/Psychosocial Hx Smoking History: Current some day smoker Have you smoked in the past 12 months: Yes Number of Cigarettes Smoked Daily: 1 Hx Alcohol Use: No Drug/Substance Use Hx: No Substance Use Type: None Hx Substance Use Treatment: No Review of Systems - Review of Systems Able to Perform ROS?: Yes Comments:: General: denied fever, chills, generalized weakness. HEENT: denied sore throat, rhinorrhea, ear pain. Cardiovascular: denied chest pain, palpitations, syncope, diaphoresis. Respiratory: admitted to shortness of breath. denied cough, sputum production, hemoptysis. Gastrointestinal: denied abdominal pain, nausea, vomiting, diarrhea, constipation, blood in stool. Genitourinary: admitted to dysuria, increased urinary frequency. denied hematuria, urinary incontinence, flank pain. Back: denied back pain. Musculoskeletal: denied joint pain, muscle pain, joint swelling. Neurological: denied headache, dizziness, numbness, tingling, weakness. Integumentary: denied rash, laceration, abrasion. Hematologic/Lymphatic: denied bruising or bleeding. *Physical Exam - Physical Exam Comments: Constitutional: Well-nourished, Well-developed, appearing stated age. HEENT: head is normocephalic, atraumatic. EOMI. PERRLA. Neck: supple. Full ROM. Cardiovascular: regular heart rhythm. no murmurs. no pericardial friction rub. Respiratory: wheezing bilaterally. Gastrointestinal: gravid, soft, nontender. normal bowel sounds. no rebound, guarding, masses. Extremities: peripheral pulses intact. no lower extremity edema. Neurological: CN 2-12 grossly intact. moves all four extremities. Psych: awake, alert, oriented x3. follows commands. answers questions appropriately. ED Treatment Course - LABORATORY CBC & Chemistry Diagram: 03/08/19 20:30 03/08/19 20:30 Medical Decision Making - Medical Decision Making 28 year old female 34 weeks with PMH gestational HTN presented to ED for shortness of breath. Examination significant for bilateral wheezing. Initial Vital Signs Temp Pulse Resp BP Pulse Ox 98.3 F 89 20 169/108 H 100 03/08/19 04:15 03/08/19 04:15 03/08/19 04:15 03/08/19 04:15 03/08/19 04:15 Afebrile. No tachycardia. No tachypnea. Hypertensive. No hypoxia on room air. Medications given by EMS: Decadron 10 mg, Albuterol nebulizer treatment Labs ordered: CBC, CMP, UA/UC Imaging ordered: none Medications ordered: duonebx3, magnesium 2gm IV 03/08/19 05:33 Urine Test Results Urine Color Yellow 03/08/19 04:37 Urine Appearance Clear 03/08/19 04:37 Urine pH 7.0 (5.0-8.0) 03/08/19 04:37 Ur Specific [place] 1.020 (1.010-1.035) 03/08/19 04:37 Urine Protein Negative (NEGATIVE) 03/08/19 04:37 Urine Glucose (UA) Negative (NEGATIVE) 03/08/19 04:37 Urine Ketones Negative (NEGATIVE) 03/08/19 04:37 Urine Blood Negative (NEGATIVE) 03/08/19 04:37 Urine Nitrite Negative (NEGATIVE) 03/08/19 04:37 Urine Bilirubin Negative (NEGATIVE) 03/08/19 04:37 Ur Leukocyte Esterase 2+ (NEGATIVE) H 03/08/19 04:37 WBC 8 UTI in Macrobid ordered by Dr. Ledezma, PGY3. 03/08/19 05:41 CBC WBC 8.2 K/mm3 (4.0-10.0) 03/08/19 04:37 RBC 3.06 M/mm3 (3.60-5.2) L 03/08/19 04:37 Hgb 8.5 GM/dL (10.7-15.3) L 03/08/19 04:37 Hct 25.8 % (32.4-45.2) L 03/08/19 04:37 MCV 84.3 fl (80-96) 03/08/19 04:37 MCH 27.7 pg (25.7-33.7) 03/08/19 04:37 MCHC 32.8 g/dl (32.0-36.0) 03/08/19 04:37 RDW 14.4 % (11.6-15.6) 03/08/19 04:37 Plt Count 316 K/MM3 (134-434) 03/08/19 04:37 MPV 7.7 fl (7.5-11.1) 03/08/19 04:37 Absolute Neuts (auto) 6.6 K/mm3 (1.5-8.0) 03/08/19 04:37 Neutrophils % 80.9 % (42.8-82.8) 03/08/19 04:37 Lymphocytes % 12.3 % (8-40) D 03/08/19 04:37 Monocytes % 4.9 % (3.8-10.2) 03/08/19 04:37 Eosinophils % 1.6 % (0-4.5) 03/08/19 04:37 Basophils % 0.3 % (0-2.0) 03/08/19 04:37 Nucleated RBC % 0 % (0-0) 03/08/19 04:37 No leukocytosis. Normocytic anemia. CMP Sodium 140 mmol/L (136-145) 03/08/19 04:37 Potassium 3.4 mmol/L (3.5-5.1) L 03/08/19 04:37 Chloride 106 mmol/L (98-107) 03/08/19 04:37 Carbon Dioxide 25 mmol/L (21-32) 03/08/19 04:37 Anion Gap 9 MMOL/L (8-16) 03/08/19 04:37 BUN 6.6 mg/dL (7-18) L 03/08/19 04:37 Creatinine 0.6 mg/dL (0.55-1.3) 03/08/19 04:37 Est GFR (CKD-EPI)AfAm 142.76 03/08/19 04:37 Est GFR (CKD-EPI)NonAf 123.17 03/08/19 04:37 Random Glucose 94 mg/dL (74-106) 03/08/19 04:37 Calcium 8.1 mg/dL (8.5-10.1) L 03/08/19 04:37 Total Bilirubin 0.2 mg/dL (0.2-1) 03/08/19 04:37 AST 29 U/L (15-37) 03/08/19 04:37 ALT 30 U/L (13-61) 03/08/19 04:37 Alkaline Phosphatase 109 U/L (45-117) 03/08/19 04:37 Total Protein 6.0 g/dl (6.4-8.2) L 03/08/19 04:37 Albumin 2.4 g/dl (3.4-5.0) L 03/08/19 04:37 No clinically significant electrolyte abnormalities. No ANABELA. No transaminitis. Pt reported improvement of symptoms, wheezing improved but still present. 03/08/19 06:20 Pt is still hypertensive, will admit to OB. Dr. Ledezma called OBGYN, was told the OB was deliveing a baby at the moment and would called back. Twenty minutes later Dr. Ledezma went up to the L&D unit, and spoke with OB , Dr. Barnard, who accepted the patient for admission Pending admission. *DC/Admit/Observation/Transfer Diagnosis at time of Disposition: Preeclampsia - Referrals - Patient Instructions - Post Discharge Activity
[2019-03-08] MEDS ORDERED: DEXAMETHASONE SOD PHOSPHATE 10 MG/1 ML VIAL ONE (04:08)
[2019-03-08] MEDS ORDERED: ALBUTEROL SO4 2.5/IPRATROPIUM 0.5 INH SOL 3 ML VIAL.NEB. NEB ONE ×3 (04:08→04:49)
--- NOTE | 2019-03-08 04:09 | PDOC ---
Attending Attestation - Resident Resident Name: Bia Medrano - ED Attending Attestation I have performed the following: I have examined & evaluated the patient, The case was reviewed & discussed with the resident, I agree w/resident's findings & plan - HPI HPI: 03/08/19 05:59 Pt comes with asthma exacerbation; she brings with her the 24 hr urine sample that she has been collecting and is supposed to drop off to the hospital lab today. Pt tells us that she has HTN and preeclampsia in all her pregnancies, as well as all of this . Pt thinks that her current dose of meds at home is 200mg labetalol TID, however she states that her docs may have increased the dose recently. - Physicial Exam PE: 03/08/19 05:56 Agree with resident exam. Pt has no abd pain and no complaints other than her asthma; wheezing; O2sat on RA is 94-95%; Pt will be treated for her asthma in the ED, as she will not be accepted on [facility] with her asthma exacerbation untreated. - Medical Decision Making 03/08/19 05:56 Pt given labetalol and 2g mag. BP is coming down minimally; she will get labetalol repeat push and IV drip and hydralazine IVP and she will be admitted to the [facility] floor for preeclampsia.
[2019-03-08] MEDS ORDERED: MAGNESIUM SULF 50% (8.12 MEQ/2 ML-1 GM VIAL) IVPB ONE ×2 (04:18→04:41)
[2019-03-08 04:21] VITALS: BMI 40.7
[2019-03-08] MEDS ORDERED: ACETAMINOPHEN 1000 MG/100 ML VIAL (NON FORMULARY) IVPB ONE (04:25)
[2019-03-08] MEDS ORDERED: LABETALOL HCL 5 MG/1 ML (100MG/20 ML VIAL) IVPUSH ONE ×3 (04:45→17:01)
[2019-03-08] MEDS ORDERED: ACETAMINOPHEN INJECTION 100 ML IVPB ONE (04:49)
[2019-03-08] MEDS ORDERED: MAGNESIUM 1GM/D5W - 2 GM/200 ML IVPB IVPB ONE (04:50)
[2019-03-08] MEDS ORDERED: LABETALOL HCL 5 MG/1 ML (200MG/40ML VIAL) IVPB ONE (04:50)
[2019-03-08 05:00] LABS: EPI CELLS 11.2 /HPF (0-5/HPF); HYALINE CASTS 11 /lpf (0-8); URINE APPEARANCE CLEAR; URINE BILIRUBIN NEGATIVE (NEGATIVE); URINE COLOR YELLOW; URINE GLUCOSE (UA) NEGATIVE (NEGATIVE); URINE KETONE NEGATIVE (NEGATIVE); URINE LEUK ESTERASE 2+ (NEGATIVE); URINE NITRITE NEGATIVE (NEGATIVE); URINE PROTEIN NEGATIVE (NEGATIVE); URINE RBC 1 /hpf (0-4); URINE WBC 8 /hpf (0-5)
[2019-03-08 05:01] LABS: BASO % 0.3 % (0-2.0); EOS % 1.6 % (0-4.5); HEMATOCRIT 25.8 % (32.4-45.2); HEMOGLOBIN 8.5 GM/dL (10.7-15.3); LYMPH % 12.3 % (8-40); MCH 27.7 pg (25.7-33.7); MCHC 32.8 g/dl (32.0-36.0); MEAN CELL VOLUME 84.3 fl (80-96); MEAN PLT VOLUME 7.7 fl (7.5-11.1); MONO % 4.9 % (3.8-10.2); NEUT % 80.9 % (42.8-82.8); PLATELET COUNT 316 K/MM3 (134-434); RBC 3.06 M/mm3 (3.60-5.2); RDW 14.4 % (11.6-15.6); WHITE BLOOD COUNT 8.2 K/mm3 (4.0-10.0)
[2019-03-08] MEDS ORDERED: NITROFURANTOIN MACROCRYSTAL 50 MG CAPSULE (FP) PO SCH (05:15)
[2019-03-08] MEDS ORDERED: NITROFURANTOIN MACROCRYSTAL 50 MG CAPSULE (FP) PO ONE (05:15)
[2019-03-08 05:23] LABS: ALBUMIN 2.4 g/dl (3.4-5.0); BILIRUBIN,TOTAL 0.2 mg/dL (0.2-1); BLOOD UREA NITROGEN 6.6 mg/dL (7-18); CALCIUM 8.1 mg/dL (8.5-10.1); CREATININE 0.6 mg/dL (0.55-1.3); POTASSIUM 3.4 mmol/L (3.5-5.1)
[2019-03-08] MEDS ORDERED: CEPHALEXIN MONOHYDRATE 500 MG CAPSULE (UD) PO ONE (05:33)
[2019-03-08] MEDS ORDERED: NITROFURANTOIN MACROCRYSTAL 50 MG CAPSULE (FP) ONE (05:41)
[2019-03-08] MEDS ORDERED: CEPHALEXIN MONOHYDRATE 500 MG CAPSULE (UD) ONE (05:41)
[2019-03-08] MEDS ORDERED: hydrALAZINE HCL 20 MG/ML VIAL IVPUSH ONE ×5 (05:52→20:11)
[2019-03-08] MEDS ORDERED: LABETALOL HCL INJECTION 1,000 MG in SODIUM CHLORIDE 800 ML IV SCH (06:00)
[2019-03-08] MEDS ORDERED: hydrALAZINE HCL 25 MG TABLET (FP) ONE (06:01)
[2019-03-08] MEDS ORDERED: hydrALAZINE HCL 20 MG/ML VIAL ONE ×2 (07:12→10:17)
[2019-03-08] MEDS: LABETALOL HCL 200 MG TABLET (FP) PO SCH ×2 (07:20→10:08)
[2019-03-08] MEDS ORDERED: LABETALOL HCL 200 MG TABLET (FP) ONE ×4 (07:21→18:08)
[2019-03-08] MEDS ORDERED: ALBUTEROL SO4 8 GM HFA INHALER IH PRN (07:58)
--- NOTE | 2019-03-08 08:04 | HP ---
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 No: Migraine, Seizure Cardiovascular: Yes: HTN (chr hTN treatment with Po labetalol. poorly controlled ), Other (h/o Preclempsia in previous 3 pregn) Pulmonary: Yes: Asthma (Patient reports no symptoms now in L&D), Sleep Apnea Gastrointestinal: Yes: Gastritis. No: GERD Heme/Onc: Yes: Anemia (rx po iron bid & pnv, high iron diet). No: B12 Deficiency, Bleeding Disorder, Cancer, Current Chemotherapy, Current Radiation Therapy, Hemochromatosis, Hypercoaguable State, Myeloproliferative Synd, Sickle Cell Disease, Sickle Cell Trait, Thrombocytopenia, Other Infectious Disease: Yes: STD's (h/o HPV in past, condyloma in past trich). No : AIDS, HIV, Tuberculosis Psych: Yes: Other (denies h/o mental health problems) Endocrine: Yes: Other - Past Surgical History Past Surgical History: Yes: (c/sections 07/2010 & 01/2014) Hx Myomectomy: No Hx Transabdominal Cerclage: No - Smoking History Smoking history: Current some day smoker Have you smoked in the past 12 months: Yes Aproximately how many cigarettes per day: 1 - Alcohol/Substance Use Hx Alcohol Use: No History of Substance Use: reports: None, Marijuana (pt states she stopped couple of months before she was seen in the clinic , ? 12/2016. 03/08/17 urine drug tox pos for Marijuana pt denies smoking in current pregn 2018) Home Medications - Allergies Allergies/Adverse Reactions: Allergies Allergy/AdvReac Type Severity Reaction Status Date / Time No Known Allergies Allergy Verified 03/08/19 08:24 - Home Medications Home Medications: Ambulatory Orders Vitamins (Sjr) - 1 tab PO DAILY #60 tablet 10/10/17 Labetalol HCl [Normodyne -] 200 mg PO TID 03/03/19 Family Disease History - Family Disease History Family Disease History: Diabetes: Mother (HTN), Sister (PIH), Other: Grandparent (HTN) Review of Systems Findings/Remarks: Patient denies LOF, VB, contractions, Chest pain, SOB, n/V, GARCIA and vision changes, RUQ pain, LE edema. She reports slight decreased in FM - Review of Systems Constitutional: reports: No Symptoms Eyes: reports: No Symptoms HENT: reports: No Symptoms, Ocular Prosthesis Cardiovascular: reports: No Symptoms Respiratory: reports: No Symptoms Gastrointestinal: reports: No Symptoms Genitourinary: reports: No Symptoms Breasts: reports: No Symptoms Reported Musculoskeletal: reports: No Symptoms Integumentary: reports: No Symptoms Neurological: reports: No Symptoms Endocrine: reports: No Symptoms Hematology/Lymphatic: reports: No Symptoms Psychiatric: reports: No Symptoms Physical Exam - Maternity Vital Signs: Vital Signs Temperature 98.3 F 03/08/19 04:15 Pulse Rate 89 03/08/19 04:15 Respiratory Rate 20 03/08/19 04:15 Blood Pressure 174/101 H 03/08/19 05:52 O2 Sat by Pulse Oximetry (%) 100 03/08/19 04:15 Constitutional: Yes: Calm Eyes: Yes: Conjunctiva Clear HENT: Yes: Atraumatic, Tonsillar Exudate Cardiovascular: Yes: Regular Rate and Rhythm Breast(s): Yes: Other (deferred) - Abdominal Exam/OB Number of Fetuses: Single Contractions: No Intensity: Unaware Monitor Mode: External Category: I Accelerations: Uniform Decelerations: None - Vaginal Exam/OB Vaginal Bleediing: No (exam deffered) - Physical Exam Musculoskeletal: Yes: WNL Extremities: Yes: WNL Edema: LLE: Trace, RLE: Trace Deep Tendon Reflex Grade: Normal +2 (no clonus noted on examination) ...Motor Strength: WNL Psychiatric: Yes: Alert, Oriented - Labs Lab Results: CBC, BMP 03/08/19 04:37 03/08/19 04:37 Hemorrhage Risk Assessment - Risk Factors Medium Risk Factors: Yes: Obesity (BMI >40) Risk Score: 1 Risk Level: Medium Risk Imaging - Results Ultrasound: Report Reviewed Assessment/Plan 28y/o @ 33.5wks, CHTN poorly controlled and BP in severe range. IV hydralazine 5mg administered and labetalol 400mg PO give. Patient is asymptomatic and partial PEC labs WNL. She reports taking antihypertensive medication incorrectly (low dosage). 24 hr protein inadequately performed by the patient and discarded. ic complicated by prior C/S x 3, asthma, stable mild anemia, and IUGR, smoker. Patient was treated for asthma in the ER and condition subsided. tx for UTI initiated in ER. IUGR S/P steroids and reassuring status. Diagnosis of CHTN exacerbation vs superimposed PEC discussed with the patients. Potential risks and complications, along with importance of BP control explained. All questions answered. -Admit -PEC labs -Monitor and control BP -PO antihypertensives -Continuous monitoring -keflex for UTI -Hold off on mag as her presentation is suggestive of exacerbation of CHTN due to non-compliance
[2019-03-08 08:44] LABS: RATIO URIN PROTEIN/URIN CREAT 0.29 MG/DL
[2019-03-08 08:46] LABS: COCAINE, UR NEGATIVE ng/ml (CUTOFF=300); METHADONE, UR NEGATIVE ng/ml (CUTOFF=300); OPIATES, URI NEGATIVE ng/ml (CUTOFF=300); PHENCYCLIDINE,URINE NEGATIVE ng/ml (CUTOFF=25); URINE AMPHETAMINES NEGATIVE ng/ml (CUTOFF=500); URINE BARBITURATES NEGATIVE ng/ml (CUTOFF=200); URINE BENZODIAZEPINES NEGATIVE ng/ml (CUTOFF=200)
[2019-03-08 09:53] LABS: URIC ACID 3.2 mg/dL (2.6-7.2)
[2019-03-08] MEDS ORDERED: NIFEdipine E.R. 30 MG TABLET (FP) PO SCH ×2 (10:00→18:30)
[2019-03-08] MEDS ORDERED: ACETAMINOPHEN 325 MG TABLET (FP) ONE ×2 (11:12→18:08)
[2019-03-08] MEDS ORDERED: ACETAMINOPHEN 325 MG TABLET (FP) PO ONE ×3 (14:00→19:00)
[2019-03-08] MEDS ORDERED: LABETALOL HCL 200 MG TABLET (FP) PO ONE ×2 (14:38→14:46)
[2019-03-08] MEDS ORDERED: LABETALOL HCL 5 MG/1 ML (100MG/20 ML VIAL) ONE (16:37)
--- NOTE | 2019-03-08 17:05 | PN ---
Progress Note (short form) - Note Progress Note: Patient evaluated due to the fact that she feels frustrated due to being inpatient and NPO. She reports headache that she believes is due to hunger. She denies any additional symptomatology vitals: labile BP PEC labs reviewed FHT: reassuring A/P: IV labetalol 60mg x1, patient has receive multiple IV pushes labetalol PO 800mg BI Nifidepine 30mg XL Monitor BP and continue inpatient management
[2019-03-08] MEDS ORDERED: CEPHALEXIN MONOHYDRATE 500 MG CAPSULE (UD) PO SCH (18:00)
[2019-03-08] MEDS ORDERED: LABETALOL HCL 200 MG TABLET (FP) PO SCH ×2 (18:00)
[2019-03-08] MEDS ORDERED: LABETALOL HCL 100 MG TABLET (FP) ONE (18:08)
[2019-03-08] MEDS ORDERED: NIFEdipine E.R. 30 MG TABLET (FP) PO ONE (18:30)
[2019-03-08] MEDS ORDERED: MAGNESIUM 4GM/H20 - 4 GM/100 ML IVPB IVPB ONE ×2 (20:35→20:36)
[2019-03-08 20:57] LABS: EOS % 0.2 % (0-4.5); HEMATOCRIT 27.2 % (32.4-45.2); HEMOGLOBIN 8.9 GM/dL (10.7-15.3); LYMPH % 7.3 % (8-40); MCH 27.6 pg (25.7-33.7); MCHC 32.5 g/dl (32.0-36.0); MEAN CELL VOLUME 84.8 fl (80-96); MEAN PLT VOLUME 7.6 fl (7.5-11.1); MONO % 3.7 % (3.8-10.2); NEUT % 88.8 % (42.8-82.8); PLATELET COUNT 370 K/MM3 (134-434); RBC 3.21 M/mm3 (3.60-5.2); RDW 14.2 % (11.6-15.6); WHITE BLOOD COUNT 11.7 K/mm3 (4.0-10.0)
--- NOTE | 2019-03-08 21:07 | PN ---
Ante-Partal Exam - Subjective Subjective: Patient evaluated for BP in severe range and persistent GARCIA despite taking tylenol. She reports some visual disturbances. She denies RUQ pain, CP, SOB, LE edema. Vital Signs: Vital Signs Temperature 98.4 F 03/08/19 18:00 Pulse Rate 88 03/08/19 18:30 Respiratory Rate 20 03/08/19 18:30 Blood Pressure 159/87 03/08/19 18:30 O2 Sat by Pulse Oximetry (%) 100 03/08/19 04:15 Bleeding: No Headache: Yes (6/10) Visual changes: Yes (mild sensitivity to light) Right upper quadrant pain: No Pain (scale 1-10): 6 - Contractions Contractions: No Regularity: Irritability Monitor Mode: External - Exam during Labor Heart Rate: 135 Variability: Moderate Category: I Monitor Accelerations: Present Monitor Decelerations: Variable (one) Exam: Vaginal Remarks: Patient is concern as her headache has not improved as it usually does. Vitals: as recorded General: Patient is alert and oriented, not in acute distress Abd: gravid, soft, n/d, n/t, no RUQ tenderness Ext: trace edema, 2+DTR, no clonus - Assessment/Plan Assessment/Plan: 28 y/o @ 33.5wks, non-compliant poorly controlled CHTN with superimposed PEC, worsening headache and refractory BP. BP controlled has required multiple pushes of IV antihypertensives. Current significant for IUGR, smoking , prior C/S x 3 due to PEC, mild anemia, and UTI. Reassuring status S/P steroid administration, EFW 8% (1761g) with normal UA dopplers and ARRON 10.9cm on 03/05/19. Maternal transferred requested due to NICU logistical reasons and patient's request. -IV hydralazine 10mg IV administered -[facility] for seizure prophylaxis -Continuous monitoring and maternal BP monitoroing -Stat PEC labs -Transfer accepted by [facility] after case discussed with receiving attending
[2019-03-08 21:09] LABS: ALBUMIN 2.4 g/dl (3.4-5.0); BILIRUBIN,TOTAL 0.2 mg/dL (0.2-1); BLOOD UREA NITROGEN 8.1 mg/dL (7-18); CALCIUM 8.8 mg/dL (8.5-10.1); CREATININE 0.6 mg/dL (0.55-1.3); POTASSIUM 3.3 mmol/L (3.5-5.1); TOT PROT 6.3 g/dl (6.4-8.2); URIC ACID 3.3 mg/dL (2.6-7.2)
[2019-03-08 23:50] VITALS: BP 121/70; PULSE 88; TEMP 98.6
[2019-03-09] MEDS ORDERED: CEPHALEXIN MONOHYDRATE 500 MG CAPSULE (UD) PO SCH (06:00)
[2019-03-09] MEDS ORDERED: NIFEdipine E.R 60 MG TABLET (UD) PO SCH (10:00)
== END 2019-03-08 22:10 | disposition short-term general hospital (02) | DRG 566 ==
LOC: JER 04:02 → JERBED 05:57 → JLDR 07:15
PROVIDERS: ADMIT Student in an Organized Health Care Education/Training Program; ATTEND Student in an Organized Health Care Education/Training Program
DX: O11.3 Pre-existing hypertension with pre-eclampsia, third trimester (principal); O23.43 Unspecified infection of urinary tract in pregnancy, third trimester; O36.5930 Maternal care for other known or suspected poor fetal growth, third trimester, not applicable or unspecified; Z3A.33 33 weeks gestation of pregnancy; O26.893 Other specified pregnancy related conditions, third trimester; J45.901 Unspecified asthma with (acute) exacerbation; O99.213 Obesity complicating pregnancy, third trimester
CPT/HCPCS: 36415; 80053; 80307; 81003; 82570; 83615; 84156; 84550; 85025; 86593; 86850; 86900; 86901; 87086; 87389; 99282-25; J0131